=== PATIENT | male | born 2000 | race Caucasian/White ===

== ENCOUNTER 2020-06-18 09:41 | Day surgery (SDC) | payer OTHER ==
[~2020-06-18 09:41] MED LIST: CEFAZOLIN 2 GM/D5W RTU 2 GM/50 ML RTUPB IV PRN
[2020-06-18] MEDS ORDERED: FENTANYL CITRATE INJ/PF 100 MCG/2 ML AMPUL ONE (09:48)
[2020-06-18] MEDS ORDERED: ONDANSETRON HCL INJ/PF 4 MG/2 ML SDV ONE (09:49)
[2020-06-18] MEDS ORDERED: DEXAMETHASONE SOD PHOSPHATE INJ 4 MG/1 ML VIAL ONE (09:49)
[2020-06-18] MEDS ORDERED: PROPOFOL INJ 200 MG/20 ML VIAL IV ONE (09:49)
[2020-06-18] MEDS ORDERED: MIDAZOLAM 2 MG/2 ML INJ ONE (09:49)
[2020-06-18] MEDS ORDERED: CEFAZOLIN 2 GM/D5W RTU 2 GM/50 ML RTUPB IV ONE (10:56)
[2020-06-18] MEDS ORDERED: BUPIVACAINE HCL 0.5 % INJ/PF 30 ML SDV ONE (11:56)
[2020-06-18] MEDS ORDERED: LIDOCAINE 1% INJ-PF (10 MG/ML) 30 ML SDV ONE (11:56)
[2020-06-18] MEDS ORDERED: BACITRACIN INJ 50,000 UNIT VIAL ONE (11:56)
[2020-06-18] MEDS ORDERED: LIDOCAINE 1%/EPINEPHRINE INJ 20 ML VIAL ONE (12:04)
[2020-06-18] MEDS ORDERED: MEPERIDINE HCL/PF INJ 25 MG/1 ML DISP.SYRIN IV PRN (12:29)
[2020-06-18] MEDS ORDERED: FENTANYL CITRATE INJ/PF 100 MCG/2 ML AMPUL IV PRN ×3 (12:29)
[2020-06-18] MEDS ORDERED: PROMETHAZINE HCL INJ 25 MG/1 ML VIAL IV PRN ×2 (12:29)
[2020-06-18] MEDS ORDERED: DIPHENHYDRAMINE HCL 50 MG/ML VIAL IV PRN (12:29)
[2020-06-18] MEDS ORDERED: ONDANSETRON HCL INJ/PF 4 MG/2 ML SDV IV PRN (12:29)
[2020-06-18] MEDS ORDERED: OXYCODONE-ACETAMINOPHEN 5-325 MG TABLET PO PRN (13:51)
--- NOTE | 2020-06-18 13:52 | Discharge Summary ---
Discharge Summary (SDC) - Discharge Final Diagnosis: Left Small Finger Flexor Tendon Laceration Date of Surgery: 06/18/20 Discharge Date: 06/18/20 Condition: Good Treatment or Instructions: Schedule Follow Up w/ Dr. Hudson Hammond @ [facility] for Surgery to be seen in 10-14 days or as scheduled [place]: [place]: [place]: Ice and elevate Keep splint clean/dry/intact, do not remove. If your fingers become numb please unwrap the Yordy wrap but leave the splint in place, if the sensation does not return within 30 minutes please return to the emergency department. Please use ibuprofen (Motrin or Advil) 600-800 mg every 8 hours as needed for pain or fever DO NOT TAKE w/ TORADOL may use once TORADOL complete. You may also use acetaminophen (Tylenol) 1000 mg every 4-6 hours as needed for pain or fever. Please be aware that many medications contain acetaminophen, do not exceed a total of 1000 mg of acetaminophen every 6 hours. If ibuprofen and acetaminophen are not sufficient for your pain you may take the Percocet/Solon. Please be aware that the Percocet/Solon does contain Tylenol. Stool softener of choice when on pain medication. USE OF [id number] IBUPROFEN: Ibuprofen (Advil, Nuprin, Medipren, Motrin IB) is a medication for fever and pain control. In addition, it has anti- inflammatory effects which may be beneficial, especially in the treatment of injuries. It's best to take ibuprofen with food. Persons with ulcer disease or allergy to aspirin should notify their physician of this before taking ibuprofen . Ibuprofen can be given every four to six hours, for a total of four doses daily. Age Pain or fever dose Antiinflammatory dose 6-8 yr 200 mg (1 tab) 200 mg (1 tab) 9-11 yr 200 mg (1 tab) 200-400 mg (1-2 tab) 11-14 yr 200-400 mg (1-2 tab) 400 mg (2 tab) 15-adult 400 mg (2 tab) 600 mg (3 tab) ORAL NARCOTIC MEDICATION: You have been given a prescription for pain control. This medication is a narcotic. It's best taken with food, as nausea can result if taken on an empty stomach. Don't operate machinery or drive within six hours of taking this medication. Do not combine this medicine with alcohol, or with any medication which can cause sedation (such as cold tablets or sleeping pills) unless you get permission from the physician. Narcotics tend to cause constipation. If possible, drink plenty of fluids and eat a diet high in fiber and fruits. Please be aware that prescription narcotics also have the potential for abuse. People become addicted to these medications because of the general sense of wellbeing that they induce. This feeling along with a significant reduction in tension, anxiety, and aggression provides a stimulating seductive quality to these drugs. Once your pain is under control, we encourage you to discard your unused narcotics. Prescriptions: Oxycodone HCl/Acetaminophen [Percocet 7.5-325 mg Tablet] 1 tab PO Q6 PRN #25 tab PRN Reason: Discharge Diet: As Tolerated Respiratory Treatments at Home: Deep Breathing/Coughing Discharge Activity: No Lifting Over 10 Pounds, No Lifting/Push/Pulling Report the Following to Your Physician Immediately: Fever over 101 Degrees, Unusual Bleeding, Redness, Swelling, Warmth, Increased Soreness
--- NOTE | 2020-06-18 13:57 | Operative Report ---
Operative Report DATE OF SURGERY: 06/18/20 PREOPERATIVE DIAGNOSIS: Left small finger zone II FDP laceration POSTOPERATIVE DIAGNOSIS: Same OPERATION: Left small finger zone II FDP repair SURGEON: QING MELENDEZ ANESTHESIA: LMAC COMPLICATIONS: None ESTIMATED BLOOD LOSS: Minimal PROCEDURE: Indication for above procedure: 19-year-old male who sustained a laceration to his right left small finger. Patient originally did not seek immediate follow-up until he was unable to bend his finger. Was later seen at that point was sent to me for discussion of operative intervention. After discussing findings on examination decision was made to proceed with operative treatment. Risk and benefits were explained patient verbalized understanding consented for surgical procedure. Procedure In Detail: Patient was seen and evaluated in the preoperative holding area. The LEFT upper extremity was initialized and marked. Patient received 2g of Ancef IV for bacterial prophylaxis. In the preoperative holding area small finger was blocked with 1% lidocaine with epinephrine 10 cc. Patient was taken back to the operative room where transferred to the operative table. A surgical team debriefing was performed ensuring all instrumentation was available, the surgical procedure was discussed with possible concerns reviewed. An additional 2 cc was placed on the MP joint, PIP joint and 1 cc at the DIP joint. The upper extremity was prepped with chlorhexidine and alcohol and draped in a sterile fashion. A timeout was done identifying correct patient, procedure and extremity everyone in attendance agree with this and verbalized no concerns. Mid lateral skin incision was performed extending proximally with a Nacho extension to the distal palmar crease and midline distally along the DIP joint. Skin flap was elevated leaving the neurovascular bundle and that anatomic position there is no evidence of digital nerve laceration. There was complete laceration of the FDP with ingrown removal to with less than 25% involvement of the FDS. The FDP was identified between the first and second annular pulleys a small window was made. Red rubber catheter was then passed from distal to proximal and secured with 4-0 nylon suture. The FDP was then easily passed through the flexor sheath to distally. The A4 jose was vented leaving the A5 jose intact distally. FDP tendon was provisionally secured with a 22-gauge needle. Epitendinous repair was performed along the dorsal wall with interrupted 5-0 Prolene suture. A M-Spaulding 6 strand technique was then performed with the 2 strands central portion repaired with a 4-0 FiberWire suture. The core 4 strand suture was repaired with a 3-0 Supramid suture. 1 cm bites were measured and ob tained through the proximal and distal aspect of the flexor tendon. Epitendinous repair was then completed with 5-0 Prolene suture along its volar wall. Patient was then awoken from anesthesia had full active flexion with full passive extension although there was notable tightness with attempted extension. There is no evidence of gapping at the tendon repair. Wound was then copiously irrigated with normal saline. Any peripheral veins were coagulated with bipolar cautery. Skin was closed interrupted 4-0 nylon suture. Xeroform 4 x 4's and a dorsal blocking splint with the MP joints at 60 degrees of flexion and wrist to neutral position was placed. Patient had hindu of his capillary refill and skin turgor at completion of the case. Sponge counts, instrument counts, needle counts counts were correct. Patient was then awoken from anesthesia. Transferred from the operating room table to the operating room stretcher. There was no intraoperative complications patient tolerated procedure well stable to PACU. Postoperative plan: Patient will follow-up as scheduled for wound check. They will call with any questions or concerns.
[2020-06-18 14:55] VITALS: BP 124/72
== END 2020-06-18 15:20 | disposition home or self-care (01) ==
LOC: OROUT 09:41
PROVIDERS: ATTEND Orthopaedic Surgery
DX: S66.127A Laceration of flexor muscle, fascia and tendon of left little finger at wrist and hand level, initial encounter (principal); W26.8XXA Contact with other sharp object(s), not elsewhere classified, initial encounter; Y99.0 Civilian activity done for income or pay
CPT/HCPCS: 26356; 01810; J2250; J3490 ×2; J3010; J2704; J0690; 1810; J1100; J2405